=== PATIENT | male | born 1990 | race Caucasian/White ===

== ENCOUNTER 2019-09-21 13:24 | Emergency (ER) | payer SELFPAY ==
[2019-09-21 13:30] VITALS: BP 133/81; PULSE 82; RESP 20; TEMP 36.6; O2SAT 100
--- NOTE | 2019-09-21 14:22 | ED.GENADULT ---
HPI - General Adult General Chief complaint: Skin/Abscess/Foreign Body Stated complaint: sore on chin/neck and arm Time Seen by Provider: 09/21/19 14:22 Related Data Home Medications Medication Instructions Recorded Confirmed No Home Medications 09/21/19 09/21/19 Allergies Allergy/AdvReac Type Severity Reaction Status Date / Time No Known Allergies Allergy Verified 09/21/19 13:52 Course Vital Signs Vital signs: Vital Signs Temperature 36.6 C 09/21/19 13:30 Pulse Rate 82 09/21/19 13:30 Respiratory Rate 09/21/19 13:30 Blood Pressure 133/81 09/21/19 13:30 Pulse Oximetry 100 09/21/19 13:30 Temperature 36.6 C 09/21/19 13:30 Pulse Rate 82 09/21/19 13:30 Respiratory Rate 09/21/19 13:30 Blood Pressure 133/81 09/21/19 13:30 Pulse Oximetry 100 09/21/19 13:30 Medical Decision Making Vital Signs Vital Signs: Vital Signs Temperature 36.6 C 09/21/19 13:30 Pulse Rate 82 09/21/19 13:30 Respiratory Rate 09/21/19 13:30 Blood Pressure 133/81 09/21/19 13:30 Pulse Oximetry 100 09/21/19 13:30 Temperature 36.6 C 09/21/19 13:30 Pulse Rate 82 09/21/19 13:30 Respiratory Rate 09/21/19 13:30 Blood Pressure 133/81 09/21/19 13:30 Pulse Oximetry 100 09/21/19 13:30 Discharge Plan Discharge Prescriptions: No Action No Home Medications RF: 0
== END 2019-09-21 14:22 | disposition left against medical advice (07) ==
LOC: EXPBETH 13:28
PROVIDERS: Emergency Provider Nurse Practitioner Family
DX: L98.9 Disorder of the skin and subcutaneous tissue, unspecified (principal)
CPT/HCPCS: 99199